=== PATIENT | male | born 1955 | race Asian ===

== ENCOUNTER 2020-03-03 07:54 | Emergency (ER) | payer OTHER ==
[~2020-03-03] VITALS: Ht 160 cm; Wt 56.8 kg
[2020-03-03] MEDS ORDERED: ATEN-73 PO (07:59)
[2020-03-03] MEDS ORDERED: ATOR10TA84 PO (07:59)
[2020-03-03] MEDS ORDERED: METF-960 PO (07:59)
[2020-03-03] MEDS ORDERED: ASPI-728 PO (07:59)
[2020-03-03 08:12] VITALS: BP 138/85
== END 2020-03-03 09:41 | disposition home or self-care (01) ==
LOC: EMS 07:54
DX: R05 Cough (principal); E11.9 Type 2 diabetes mellitus without complications; E78.00 Pure hypercholesterolemia, unspecified; I10 Essential (primary) hypertension; Z20.828 Contact with and (suspected) exposure to other viral communicable diseases; Z79.84 Long term (current) use of oral hypoglycemic drugs; Z79.82 Long term (current) use of aspirin
CPT/HCPCS: 99283; U0003